=== PATIENT | female | born 1975 | race Caucasian/White ===

== ENCOUNTER 2025-03-08 12:28 | Emergency (ER) | payer OTHER ==
[~2025-03-08] VITALS: Ht 172.7 cm; Wt 101.7 kg
[2025-03-08] MEDS ORDERED: HADLIMA40 MG/0.8 SQ (12:56)
[2025-03-08] MEDS ORDERED: MSM500 MG PO (12:56)
[2025-03-08] MEDS ORDERED: BERBERINE500 MG PO (12:56)
[2025-03-08] MEDS ORDERED: VIT D2-K1 20-1259 ML PO (12:57)
[2025-03-08] MEDS ORDERED: L-GLUTAMINE500 M1 (12:57)
[2025-03-08] MEDS ORDERED: L-GLUTAMINE500 M1 PO (12:57)
[2025-03-08] MEDS ORDERED: SODIUM CHLORIDE 0.9% 1,000 ML IV ONE (13:00)
[2025-03-08 13:28] LABS: BASOPHILS 0.5 % (0.1-1.2); EOSINOPHILS 0.5 % (0.7-5.8); LYMPHOCYTES 25.3 % (19.3-51.7); MCH 27.9 PG (25.6-32.2); MCHC 33.5 g/dL (32.2-35.5); MCV 83.4 fL (79.4-94.8); MONOCYTES 6.4 % (4.7-12.5); NEUTROPHILS 67.0 % (34.0-71.1); RBC 5.41 M/uL (3.93-5.22)
[2025-03-08 13:44] LABS: ALT (SGPT) 29.0 U/L (14-59); AST (SGOT) 21.0 U/L (15-37); GLOMERULAR FILTRATION RATE,EST 83.0 mL/min (>60); PROTEIN, TOTAL 8.5 g/dL (6.4-8.2); UREA NITROGEN 9.0 mg/dL (7-18)
[2025-03-08] MEDS ORDERED: PREDNISONE20 MG PO (15:36)
[2025-03-08 15:45] VITALS: BP 139/101
== END 2025-03-08 15:45 | disposition home or self-care (01) ==
LOC: ED 12:28
PROVIDERS: Emergency Medicine
DX: K62.89 Other specified diseases of anus and rectum (principal); Z79.899 Other long term (current) drug therapy
CPT/HCPCS: 36415; 74177; 80053; 83690; 85025; 99284-25; J7030; Q9967

== ENCOUNTER 2025-04-28 08:08 | Day surgery (SDC) | payer OTHER ==
[~2025-04-28] VITALS: Ht 172.7 cm; Wt 104.5 kg
[~2025-04-28 08:08] MED LIST: BERBERINE500 MG PO; HADLIMA40 MG/0.8 SQ; IBLOOD GLUCOSE TEST STRIP 1 EA TEST VI PRN; L-GLUTAMINE500 M1; L-GLUTAMINE500 M1 PO; LACTATED RINGER'S 1,000 ML IV SCH; LIDOCAINE HCL 1% 5 ML SDV INJ ONE; MIDAZOLAM HCL 5 MG/5 ML VIAL IV PRN; MSM500 MG PO; PREDNISONE20 MG PO; VIT D2-K1 20-1259 ML PO; fentaNYL citrate 100 MCG/2 ML VIAL IV PRN
[2025-04-28 08:23] VITALS: BP 143/96
[2025-04-28] MEDS ORDERED: RINVOQ ER15 MG PO (08:29)
[2025-04-28] MEDS ORDERED: MIDAZOLAM HCL 5 MG/5 ML VIAL ONE (10:08)
[2025-04-28] MEDS ORDERED: fentaNYL citrate 100 MCG/2 ML VIAL ONE (10:08)
--- NOTE | 2025-04-28 11:15 | NUR ---
04/28/25 Yasmani5 Saritha Thapa 1103- PT PRESENTS TO PACU, LEFT LATERAL POSITION. DROWSY BUT ANSWERING QUESTIONS. DENIES PAIN OR NAUSEA. ABD SOFT, NON DISTENDED. O2 AT 2L NC, BREATHING EVEN AND NON LABORED. LR INFUSING TO RFA. ALL MONITORS IN PLACE. 1107- PT ROLLED TO BACK ON OWN, HEAD OF BED ELEVATED. TOLERATING WELL.
[2025-04-28 11:37] VITALS: BP 126/92
--- NOTE | 2025-04-29 14:32 | OR ---
[facility] [address] [place], [place] [address] Signed DATE OF OPERATION: 04/28/2025 SURGEON: Ilya Hendricks MD PREOPERATIVE DIAGNOSES: 1. Presumptive proctitis, episodic rectal bleeding, diarrhea. 2. HLA B27 positive related to ankylosing spondylitis. 3. History of total abdominal hysterectomy with bilateral salpingo-oophorectomy 2011 for uterine polyps. POSTOPERATIVE DIAGNOSES: 1. Mid to low rectal lesion highly suspicious for neoplasm. 2. Polyps x2 of sigmoid. 3. Remaining mucosa of colon, ileum and low rectum normal. PROCEDURES: 1. Total colonoscopy to cecum with cold snare polypectomy x2 and multiple cold biopsies. 2. Multiple biopsies of rectal neoplastic lesion. 3. Endo chasidy tattoo dye application proximal and distal to rectal lesion. ANESTHESIA: Intravenous sedation fentanyl 200 mcg and Versed 10 mg. INDICATION: This 49-year-old white woman is a patient of Dr. Linda Rose. She has a longstanding and bowel issues including diarrhea and more recently proctitis symptoms including rectal bleeding and some diarrhea. She was diagnosed in 2019 with ankylosing spondylitis, considered HLA B27 positive. She has undergone hysterectomy and bilateral salpingo oophorectomy in 2011 due to uterine polyps. She was treated for her ankylosing spondylitis with Humira 40 mg every two weeks and changed to Rinvoq on the basis of ankylosing spondylitis and resistance of improvement of symptoms. Notably, she had no benefit from Humira for her rectal bleeding and diarrhea problems. She has had rectal bleeding since that least 2020 with fecal urgency and increasing anal rectal pain since October of this year. She underwent a CT scan via the emergency room in March of this year confirming "proctitis." We treated with prednisone 60 mg daily, but no other medication. She has had a low fiber diet, which she is followed. She has no family history of colon cancer though her mother did require a partial colectomy for stenosis or other cause. She is admitted at this time to undergo colonoscopy to affirm the presumptive diagnosis of colitis, which she is at increased risk to assess for other problems of course as well. The risk of bleeding, infection, perforation, and so forth Electronically Signed By: ILYA HENDRICKS MD 04/29/25 1432 PATIENT NAME: MARIBEL PEARSON OPERATIVE REPORT DATE OF : 71 REPORT #: [id number] PHYSICIAN: ILYA HENDRICKS MD PCP: LINDA ROSE MD REPORT IS CONFIDENTIAL AND NOT TO BE RELEASED WITHOUT AUTHORIZATION [facility] [address] [place], [place] [address] Signed were reviewed with her. She understands and wished to proceed. FINDINGS: The prep was good. Complete colonoscopy was undertaken of the cecum and intubation of the ileum was undertaken. Quite notably most of the mucosa of the entire GI tract were normal except for the rectal area, which had an ulcerated circumferential inflammatory lesion which I highly suspect that represents malignancy rather than inflammatory bowel disease proper. Biopsies were undertaken to refute this however. Additionally, tattoo chasidy was made cephalad and inferior to the neoplasm though there was very little room inferiorly to the dentate line, but the rectum distally did appear normal and was separately biopsied. She had two small polyps of sigmoid, both excised with cold snare technique as well. DESCRIPTION OF PROCEDURE: The patient was brought to the endoscopy suite and placed in lateral decubitus position given intravenous sedation to the point of slurred speech and nystagmus. Digital rectal examination showed some fullness of the anorectal area. Olympus video colonoscope was passed in the rectum and properly noted was inflammatory change and a somewhat bulky fungating mucosa. Manipulation through this area and beyond into the sigmoid showed completely normal sigmoid mucosa otherwise. The scope was then advanced ultimately to the cecum. The ileocecal valve and appendiceal orifice were identified as normal. The ileum was briefly intubated and biopsies were taken of the mucosa though it appeared grossly normal. Scope was withdrawn and biopsies then taken of the cecum to assess for colitis as well. Careful withdrawal of scope showed no sign of abnormality though biopsies were taken transverse and left colon and two small polyps were noted in the sigmoid. These were excised with cold snare technique and passed for pathology. Further withdrawal, ultimately identified proximal demarcation of the lesion. This upon close review looks far more like rectal cancer than an inflammatory lesion, though it is certainly possible. Multiple biopsies were taken throughout this lesion both on the edge and the central portions. The scope was withdrawn to the distal portion of the rectal lesion and only a few cm at most of normal rectal mucosa was noted above the dentate line. This area was biopsied as well. A tattoo was applied with a sclerotherapy needle proximal and distal in the rectal in relation to the rectal lesion for future surgical reference if necessary. The scope was withdrawn and removed. The patient was taken to recovery room in good condition. CONCLUDING DIAGNOSIS: More likely rectal cancer than inflammatory lesion of the bladder is still possible. PLAN: We will check a CEA level today and promptly review her pathology reports to better guide therapy. She will see me back in the office in the near future in 1 to 2 weeks. Electronically Signed By: ILYA HENDRICKS MD 04/29/25 1432 PATIENT NAME: MARIBEL PEARSON OPERATIVE REPORT DATE OF : 71 REPORT #: [id number] PHYSICIAN: ILYA HENDRICKS MD PCP: LINDA ROSE MD REPORT IS CONFIDENTIAL AND NOT TO BE RELEASED WITHOUT AUTHORIZATION [address] [place] [address] Signed MD JAVI Holder/CRUZ /[id number] cc: Dr. Rose Copies: ~ Electronically Signed By: ILYA HENDRICKS MD 04/29/25 1432 PATIENT NAME: MARIBEL PEARSON OPERATIVE REPORT DATE OF : 71 REPORT #: [id number] PHYSICIAN: ILYA HENDRICKS MD PCP: LINDA ROSE MD REPORT IS CONFIDENTIAL AND NOT TO BE RELEASED WITHOUT AUTHORIZATION
--- NOTE | 2025-05-04 18:04 | PATH ---
[facility] [address] [place], [place] [address] Signed THIS IS AN ADDENDUM REPORT SPECIMEN(S): A CECUM COLON BIOPSY SPECIMEN(S): B TERMINAL ILEUM BIOPSY SPECIMEN(S): C ASCENDING COLON BIOPSY SPECIMEN(S): D DESCENDING COLON BIOPSY SPECIMEN(S): E SIGMOID POLYPS SPECIMEN(S): F COLON BIOPSY AT 10 CM SPECIMEN(S): G RECTUM SPECIMEN SOURCE: A. CECUM COLON BIOPSY B. TERMINAL ILEUM BIOPSY C. ASCENDING COLON BIOPSY D. DESCENDING COLON BIOPSY E. SIGMOID POLYPS F. COLON BIOPSY AT 10 CM G. RECTUM CLINICAL HISTORY: History of diarrhea, rectal bleed, proctitis. A-D) biopsy, E) polyp, F/G) biopsy FINAL PATHOLOGIC DIAGNOSIS: A. Cecum, biopsy: - Colonic mucosa with normal glandular architecture. - Negative for acute, chronic, and granulomatous inflammation. - Negative for dysplasia and malignancy. B. Terminal ileum, biopsy: - Terminal ileum mucosa with normal villous architecture. - Peyer's patches are present. - Negative for acute, chronic, and granulomatous inflammation. - Negative for dysplasia and malignancy. C. Ascending colon, biopsy: - Colonic mucosa with normal glandular architecture. - Negative for acute, chronic, and granulomatous inflammation. - Negative for dysplasia and malignancy. D. Descending colon, biopsy: - Colonic mucosa with normal glandular architecture. - Negative for acute, chronic, and granulomatous inflammation. - Negative for dysplasia and malignancy. PATIENT NAME: LUMARAJATMARIBEL PATHOLOGY DATE OF : 71 REPORT #: [id number] PHYSICIAN: [facility] PCP: RORY ROSE MD REPORT IS CONFIDENTIAL AND NOT TO BE RELEASED WITHOUT AUTHORIZATION [facility] [address] [place], [place] [address] Signed E. Colon, sigmoid polyps, biopsy: - Hyperplastic polyps. - Negative for dysplasia and malignancy. F. Colon at 10 cm, biopsy: - Moderately differentiated adenocarcinoma, arising in a tubular adenoma with high-grade dysplasia. - Depth of invasion cannot be determined from the biopsy. - Immunohistochemical stains for microsatellite instability markers have been ordered, with results to be reported in an addendum. G. Rectum, biopsy: - Rectal mucosa with normal glandular architecture and bland lamina propria lymphoid aggregates. - Negative for inflammation, dysplasia, and malignancy. COMMENT: As a part of [facility] program, this case received peer review by a second pathologist, with agreement for the above diagnosis. A client service alert was initiated through [facility] Client Service Department by Dr. Henderson on 04/23/2025. SDL MICROSCOPIC EXAMINATION: Specimen B: Immunohistochemical stains performed and reviewed: - CD3: Stains the majority of lymphocytes, marking them as T-cells. - CD20: Stains a lesser number of lymphocytes, in a mirror image pattern to CD3, marking them as mature B-cells. - BCL2: Stains the T-cell population, similar to CD3. This staining pattern supports a benign lymphocyte population. Histologic sections of all submitted blocks are examined by light microscopy. These findings, together with the gross examination, support the pathologic diagnosis. GROSS DESCRIPTION: A. The specimen, labeled and designated "Alderman, cecum colon biopsy," is received in formalin and consists of two fernandez soft tissue fragments, ranging from 0.2-0.5 cm. Entirely submitted in (A1). B. The specimen, labeled and designated "Alderman, terminal ileum biopsy," is received in formalin and consists of five fernandez soft tissue fragments, ranging from 0.1-0.5 cm. Entirely submitted in (B1). C. The specimen, labeled and designated ", ascending colon biopsy," is received in formalin and consists of three fernandez soft tissue fragments, ranging PATIENT NAME: MARIBEL PEARSON PATHOLOGY DATE OF : 71 REPORT #: [id number] PHYSICIAN: VON MELVIN PCP: RORY ROSE MD REPORT IS CONFIDENTIAL AND NOT TO BE RELEASED WITHOUT AUTHORIZATION [facility] [address] [place], [place] [address] Signed from 0.1-0.3 cm. Entirely submitted in (C1). D. The specimen, labeled and designated ", descending colon biopsy," is received in formalin and consists of two fernandez soft tissue fragments, ranging from 0.3-0.4 cm. Entirely submitted in (D1). E. The specimen, labeled and designated ", sigmoid polyps," is received in formalin and consists of two fernandez soft tissue fragments, ranging from 0.2-0.3 cm. Entirely submitted in (E1). F. The specimen, labeled and designated ", colon biopsy at 10 cm," is received in formalin and consists of three fernandez soft tissue fragments, ranging from 0.3-0.5 cm. Entirely submitted in (F1). G. The specimen, labeled and designated ", rectum," is received in formalin and consists of three fernandez soft tissue fragments, ranging from 0.3-0.5 cm. Entirely submitted in (G1). AB (under the direct supervision of a pathologist) The Gross Description was prepared using a voice recognition system. The report was reviewed for accuracy; however, sound-alike word errors, addition and/or deletions may occur. If there are any questions about this report, please contact Client Services. ADDITIONAL NOTES: Immunohistochemical and/or in situ hybridization studies if performed in this case included appropriate positive controls that reacted as expected. This test was developed and its performance characteristics determined by [facility]. It has not been cleared or approved by the U.S. Food and Drug Administration. The FDA has determined that such clearance or approval is not necessary. This test is used for clinical purposes. It should not be regarded as investigational or for research. [facility] is certified under the Clinical Laboratory Improvement Amendments of 1988 (CLIA) as qualified to perform high complexity clinical laboratory testing. PERFORMING LABORATORY: Technical component was performed by [facility], [address] [place] [id number] (CLIA# [id number]). Professional interpretation was performed by [facility], [address] [place] [phone] (CLIA#: [id number]). ADDITIONAL NOTES: PATIENT NAME: MARIBEL PEARSON PATHOLOGY DATE OF : 71 REPORT #: [id number] PHYSICIAN: VON MELVIN PCP: RORY ROSE MD REPORT IS CONFIDENTIAL AND NOT TO BE RELEASED WITHOUT AUTHORIZATION [address] [place], [place] [address] Signed Immunohistochemical and/or in situ hybridization studies if performed in this case included appropriate positive controls that reacted as expected. This test was developed and its performance characteristics determined by [facility]. It has not been cleared or approved by the U.S. Food and Drug Administration. The FDA has determined that such clearance or approval is not necessary. This test is used for clinical purposes. It should not be regarded as investigational or for research. [facility] is certified under the Clinical Laboratory Improvement Amendments of 1988 (CLIA) as qualified to perform high complexity clinical laboratory testing. Technical preparation was performed by [facility], [address] [place], [place] [address] [address] (CLIA#: [id number]). Professional interpretation was performed by [facility] - [facility], [address] [place] [phone] (CLIA#: [id number]). REASON FOR ADDENDUM: The purpose of this addendum is to convey the results of immunohistochemical stains for microsatellite instability markers, performed on the colon cancer in specimen F. The diagnosis is unchanged. ADDENDUM PATHOLOGIC DIAGNOSIS: F. Colon at 10 cm, colonic adenocarcinoma, microsatellite instability testing by IHC: - MLH1: Intact nuclear expression - MSH2: Intact nuclear expression - MSH6: Intact nuclear expression - PMS2: Intact nuclear expression - INTERPRETATION: Normal pattern ADDENDUM COMMENT: Tumor cells show no loss of nuclear express of MMR proteins. This correlates with a low probability of microsatellite instability. However, if there is a high clinical suspicion for Brandt syndrome (hereditary non-polyposis colorectal carcinoma syndrome) in this patient, additional testing should be considered. Please contact [facility] if such testing indicated. SDL ADDENDUM MICROSCOPIC EXAMINATION: A panel of four antibodies is selected which will detect 95% of microsatellite unstable carcinomas. Testing is performed at the request of Mahsa Henderson M.D. PATIENT NAME: MARIBEL PEARSON PATHOLOGY DATE OF : 71 REPORT #: [id number] PHYSICIAN: [facility] PCP: RORY ROSE MD REPORT IS CONFIDENTIAL AND NOT TO BE RELEASED WITHOUT AUTHORIZATION [facility] [address] [place] [address] Signed Histologic sections of all submitted blocks are examined by light microscopy. These findings, together with the gross examination, support the pathologic diagnosis. Block: F1 Recut HE slide is prepared from the block. The presence of neoplastic glands and non-neoplastic internal control glands or stroma is confirmed. Internal control cells for MLH1, MSH2, PMS2 and MSH6 are positive. Neoplastic gland cells show the following: - MLH1 Positive - MSH2 Positive - MSH6 Positive - PMS2 Positive [facility] [place] Diagnostician: Mahsa Henderson MD Pathologist Electronically Signed 05/04/2025 Copies: ~ PATIENT NAME: MARIBEL PEARSON PATHOLOGY DATE OF : 71 REPORT #: [id number] PHYSICIAN: VON MELVIN PCP: RORY ROSE MD REPORT IS CONFIDENTIAL AND NOT TO BE RELEASED WITHOUT AUTHORIZATION
== END 2025-04-28 11:45 | disposition home or self-care (01) ==
LOC: DS 08:08 → OPS 08:08 → DS 09:45 → OPS 09:45
PROVIDERS: ATTEND Surgery
PROC: 0DBN8ZZ Excision of Sigmoid Colon, Via Natural or Artificial Opening Endoscopic (ICD-10-PCS; 2025-04-28)
PROC: 0DBH8ZZ Excision of Cecum, Via Natural or Artificial Opening Endoscopic (ICD-10-PCS; principal; 2025-04-28 09:45)
DX: C20 Malignant neoplasm of rectum (principal); K63.5 Polyp of colon; I10 Essential (primary) hypertension; M45.9 Ankylosing spondylitis of unspecified sites in spine; E66.9 Obesity, unspecified; Z68.38 Body mass index [BMI] 38.0-38.9, adult; Z87.891 Personal history of nicotine dependence; Z90.710 Acquired absence of both cervix and uterus
CPT/HCPCS: 36415; 82378; 88305; 99153; G0500; J2250; J3010

== ENCOUNTER 2025-05-24 08:39 | Day surgery (SDC) | payer OTHER ==
[~2025-05-24] VITALS: Ht 172.7 cm; Wt 104.5 kg
[~2025-05-24 08:39] MED LIST changes: +CEFAZOLIN SODIUM 2 GM in SODIUM CHLORIDE 0.9% 100 ML IV SCH; +HEParin SOD (PORCINE) 5,000 UNIT/ML SDV SUB-Q SCH; -MIDAZOLAM HCL 5 MG/5 ML VIAL IV PRN; +RINVOQ ER15 MG PO; -fentaNYL citrate 100 MCG/2 ML VIAL IV PRN
[2025-05-24 08:58] VITALS: BP 134/75
[2025-05-24] MEDS ORDERED: fentaNYL citrate 100 MCG/2 ML VIAL ONE (09:25)
[2025-05-24] MEDS ORDERED: LIDOCAINE HCL 2% 5 ML SDV ONE (09:25)
[2025-05-24] MEDS ORDERED: MIDAZOLAM HCL 2 MG/2 ML VIAL ONE (09:25)
[2025-05-24] MEDS ORDERED: SODIUM CHLORIDE 0.9% 100 ML IV ONE (09:59)
[2025-05-24] MEDS ORDERED: HEParin SOD (PORCINE) 5,000 UNIT/ML SDV ONE (09:59)
[2025-05-24] MEDS ORDERED: KETOROLAC TROMETHAMINE 30 MG/ML VIAL ONE (10:47)
[2025-05-24] MEDS ORDERED: LACTATED RINGER'S 1,000 ML IV ONE (10:47)
[2025-05-24] MEDS ORDERED: DEXAMETHASONE SOD PHOS 4 MG/ML VIAL ONE (10:47)
--- NOTE | 2025-05-24 11:19 | NUR ---
05/24/25 1119 Jess Ramsey 1114-PATIENT ARRIVED TO PACU ON RA RR EVEN. PATIENT AROUSING BENDING KNEES ON RA 100% RR EVEN. SR HR 80'S. IVF INFUSING. DRESSING INTACT TO RIGHT NECK AND CHEST. PATIENT REPORTS PAIN "2 JUST TENDER" 1115-XRAY CALLED FOR CHEST XRAY. 1119-WARM BLANKETS PROVIDED TO PATIENT. XRAY AT BEDSIDE.
[2025-05-24] MEDS ORDERED: IBLOOD GLUCOSE TEST STRIP 1 EA TEST VI PRN (11:30)
[2025-05-24] MEDS ORDERED: fentaNYL citrate 50 MCG/ML SDV IV PRN (11:30)
[2025-05-24] MEDS ORDERED: NALOXONE HCL 0.4 MG SYR IV PRN ×2 (11:30→11:45)
[2025-05-24] MEDS ORDERED: MOTRIN IB200 MG PO (11:35)
[2025-05-24] MEDS ORDERED: PERCOCET 7.5-31 EACH PO (11:35)
[2025-05-24] MEDS ORDERED: TYLENOL EXTRA500 MG PO (11:35)
[2025-05-24 11:54] VITALS: BP 132/81
--- NOTE | 2025-05-25 12:47 | OR ---
[facility] [address] [place], [place] [address] Signed DATE OF OPERATION: 05/24/2025 SURGEON: Ilya Hendricks MD PREOPERATIVE DIAGNOSIS: Stage 3 low rectal carcinoma, anticipating neoadjuvant chemoradiation therapy. POSTOPERATIVE DIAGNOSIS: Stage 3 low rectal carcinoma, anticipating neoadjuvant chemoradiation therapy. PROCEDURES: 1. Right internal jugular intravenous access via ultrasound. 2. Right internal jugular Port-A-Cath device placement. 3. Surgeon-directed fluoroscopy. ANESTHESIA: Local with monitored anesthesia care, Marcelle Marroquin and local 5 mL of 0.25% Marcaine with epinephrine. INDICATION: This 49-year-old white woman is a patient of Dr. Elba Rose and was recently found to have a low rectal cancer for which neoadjuvant chemoradiation therapy is anticipated prior to resection. She is admitted at this time to undergo Port-A-Cath placement for her chemotherapy. The risk of bleeding, infection, pneumothorax, failure of the device and other unforeseen complications was reviewed with her in detail. She understands and wished to proceed. FINDINGS: Easy access to the right internal jugular vein was noted with ultrasound guidance. The catheter was placed without problem. The tip in the atriocaval junction. Good contour of the catheter in relation to the port device itself was noted. Good function of the catheter was noted throughout. DESCRIPTION OF PROCEDURE: The patient was brought to the operating room, placed in mild Trendelenburg position with the head directed to the left. The upper neck and torso were prepared with a chlorhexidine solution after satisfactory intravenous sedation. Preoperative antibiotic Ancef had been given. Sequential compression device stockings were used. After sterile draping, the right neck was interrogated with a [employer] ultrasound device with a sterile cover identifying easily the right internal jugular vein. Local anesthetic was Electronically Signed By: ILYA HENDRICKS MD 05/25/25 1247 PATIENT NAME: MARIBEL PEARSON OPERATIVE REPORT DATE OF : 71 REPORT #: [id number] PHYSICIAN: ILYA HENDRICKS MD PCP: LINDA ROSE MD REPORT IS CONFIDENTIAL AND NOT TO BE RELEASED WITHOUT AUTHORIZATION [facility] [address] [place], [place] [address] Signed injected and under direct visualization the right internal jugular vein accessed. A flexible J-wire was passed down the needle and needle was removed. Surgeon directed fluoroscopy was then undertaken to confirm the wire in the right heart system. Local anesthetic was injected transversely over the right pectoral area. An incision was made transversely through the skin and dermis and the subcutaneous tissue divided with electrocautery. A pocket was developed inferiorly with blunt dissection. Using an 11 blade the insertion site of the wire in the right neck was incised and with the enclosed Bard port catheter kit the dilator and subsequent dilator and peel-away sheath introducer passed over the wire. The wire and the dilator were removed showing vigorous retrograde nonpulsatile dark bleeding. A Groshong type catheter was a Bard port kit, which had been previously inspected and irrigated with heparinized saline was passed down the sheath as to its limit and the sheath removed completely. In the supine neutral position, the fluoroscopy was once again performed with a small amount of contrast injected into the catheter. Tip of the catheter was withdrawn to the atriocaval junction. Catheter was flushed once again with heparinized saline solution. Using the tunneling device the tunneler was passed from the neck to the pocket over the pectoralis over the clavicle to allow for delivery of the catheter to the port pocket itself. Catheter was trimmed to the appropriate length and secured to the port device, which had been partially secured into the pocket already with 2-0 Vicryl. The catheter and the port were connected with the enclosed collar device per manufacture's instructions. Sutures were secured to the pectoralis fascia at that point. Access to the port device with an angled Brand needle and some contrast confirmed that the contour of the catheter and the tip were appropriately positioned and easy aspiration and irrigation of the port notable with heparinized saline. The port pocket was closed with interrupted 2-0 Vicryl suture and a running subcuticular 3-0 Vicryl for the skin. The skin over the right neck incision site was secured with a single interrupted 3-0 Vicryl. Steri-Strips were applied as was an Acticoat dressing over the right pectoral wound in an additional OpSite over the neck area. She was allowed to emerge from sedation and taken to recovery room in good condition having suffered no complication. A postprocedure chest x-ray showed the tip of the catheter to be in the superior vena cava with a good contour regarding the port device without kink or other abnormality. Electronically Signed By: ILYA HENDRICKS MD 05/25/25 1247 PATIENT NAME: MARIBEL PEARSON OPERATIVE REPORT DATE OF : 71 REPORT #: [id number] PHYSICIAN: ILYA HENDRICKS MD PCP: LINDA ROSE MD REPORT IS CONFIDENTIAL AND NOT TO BE RELEASED WITHOUT AUTHORIZATION [place] [id number] Signed MD JAVI Holder/MODL /[id number] cc: Dr. Linda Rivas MD, PH.D. Glenn Ivey MD Copies: ABI RIVAS MD, ROBERT C MD ~ Electronically Signed By: ILYA HENDRICKS MD 05/25/25 1247 PATIENT NAME: MARIBEL PEARSON OPERATIVE REPORT DATE OF : 71 REPORT #: [id number] PHYSICIAN: ILYA HENDRICKS MD PCP: LINDA ROSE MD REPORT IS CONFIDENTIAL AND NOT TO BE RELEASED WITHOUT AUTHORIZATION
== END 2025-05-24 12:05 | disposition home or self-care (01) ==
LOC: DS 08:39
PROVIDERS: ATTEND Surgery
PROC: 0JH63WZ Insertion of Totally Implantable Vascular Access Device into Chest Subcutaneous Tissue and Fascia, Percutaneous Approach (ICD-10-PCS; principal; 2025-05-24 09:30)
DX: C20 Malignant neoplasm of rectum (principal); I10 Essential (primary) hypertension; E66.01 Morbid (severe) obesity due to excess calories; Z68.38 Body mass index [BMI] 38.0-38.9, adult; Z79.899 Other long term (current) drug therapy; Z90.710 Acquired absence of both cervix and uterus; Z87.39 Personal history of other diseases of the musculoskeletal system and connective tissue
CPT/HCPCS: 00532; 71045; 77001; C1788; J0688; J1100; J1644; J1885; J2003; J2250; J2405; J2704; J3010; J7121